=== PATIENT | male | born 1990 | race Asian ===

== ENCOUNTER 2024-10-07 10:01 | Emergency (ER) | payer OTHER ==
[~2024-10-07] VITALS: Ht 175.3 cm; Wt 75.0 kg
[2024-10-07 10:09] VITALS: BP 132/91; PULSE 74; RESP 16; TEMP 97.8; O2SAT 98
== END 2024-10-07 10:58 | disposition home or self-care (01) ==
LOC: ER 10:02
DX: S63.601A Unspecified sprain of right thumb, initial encounter (principal); Y08.89XA Assault by other specified means, initial encounter; Y93.89 Activity, other specified; Y92.89 Other specified places as the place of occurrence of the external cause; Y99.8 Other external cause status
CPT/HCPCS: 29125; 73130; 99283